=== PATIENT | male | born 1965 | race African-American/Black ===

== ENCOUNTER 2022-09-01 22:45 | Emergency (ER) | payer MEDICARE, MEDICAID ==
[2022-09-01] MEDS ORDERED: Benztropine 1 MG TAB PO SCH (23:45)
[2022-09-01] MEDS ORDERED: Haloperidol 5 MG TAB PO SCH (23:45)
[2022-09-01 23:47] LABS: #Eosinphils 0.1 thou/uL (0.0-0.7); #Lymphocytes 1.8 thou/uL (1.20-3.40); #Monocytes 0.6 thou/uL (0.11-0.59); #Neutrophils 5.2 thou/uL (1.40-6.50); %Basophils 0.3 % (0.0-1.0); %Eosinophils 0.7 % (0.0-10.0); %Monocytes 7.3 % (0.0-10.0); %Neutrophils 67.7 % (42.0-75.0); Hemoglobin 12.9 g/dL (14.0-18.0); Mean Corpuscular HGB CONC 33.5 g/dL (32.0-36.0); Mean Corpuscular Hemoglobin 29.1 pg (27.0-31.0); Mean Corpuscular Volume 86.8 fl (78.0-98.0); Platelet Count 241 10x3/uL (130-400); RBC Distribution Width 13.5 % (11.5-14.5); Red Blood Cell (RBC) Count 4.42 mill/uL (4.70-6.10); White Blood Cell (WBC) Count 7.7 10x3/uL (4.8-10.8)
[2022-09-02 00:09] LABS: ALT (SGPT) 31 U/L (8-55); AST (SGOT) 33 U/L (5-34); Acetaminophen Less than 10.0 mcg/mL (10.0-30.0); Albumin 4.2 g/dL (3.5-5.0); Alkaline Phosphatase 60 U/L (40-110); Anion Gap 17 mmol/L (10-20); BUN (Urea Nitrogen) 13 mg/dL (8.4-25.7); Bilirubin, Total 0.5 mg/dL (0.2-1.2); CK (CPK) 1474 U/L (30-200); Calc. Creatinine Clearance 0 mL/min (70-130); Calcium 10.1 mg/dL (7.8-10.44); Carbon Dioxide 22 mmol/L (22-29); Chloride 102 mmol/L (98-107); Estimated GFR 80; Globulin 3.3 g/dL (2.4-3.5); Glucose 120 mg/dL (70-105); Potassium 3.9 mmol/L (3.5-5.1); Protein, Total 7.5 g/dL (6.0-8.3); Salicylate Less than 8.0 mg/dL (15.0-30.0); Sodium 137 mmol/L (136-145)
[2022-09-02] MEDS ORDERED: OLANZapine 5 MG TAB ONE ×2 (00:17→15:42)
[2022-09-02 03:38] LABS: Alcohol Less than 10 mg/dL (Less than 10)
[2022-09-02] MEDS ORDERED: Ibuprofen 200 MG TAB ONE (08:54)
[2022-09-02 09:34] LABS: Bilirubin Negative (Negative); Blood, Urine Negative (Negative); Clarity Clear (Clear); Glucose, Urine (Dipstick) Normal (Negative); Ketone, Urine 10 mg/dL (Negative); Leukocyte Negative Leu/uL (Negative); Nitrite Negative (Negative); Protein, Urine (Dipstick) 20 mg/dL (Neg-Trace); Specific Gravity, Urine 1.026 (1.002-1.036); Urobilinogen Normal mg/dL (Less than 2); pH, Urine 5.5 (5.0-9.0)
[2022-09-02 09:43] LABS: Amphetamine Not Detected (NotDetected); Barbiturates Screen Not Detected (NotDetected); Benzodiazepine Screen Not Detected (NotDetected); Cocaine Metabolite Screen Not Detected (NotDetected); Methadone Not Detected (NotDetected); Methamphetamine Not Detected (NotDetected); Opiate Screen Not Detected (NotDetected); Oxycodone Screen Not Detected (NotDetected); Phencyclidine (PCP) Not Detected (NotDetected); THC/Cannabinoid Screen Not Detected (NotDetected); Tricyclic Screen Not Detected (NotDetected)
[2022-09-02] MEDS ORDERED: hydrOXYzine Pamoate 25 mg Capsule ONE (10:39)
[2022-09-02] MEDS ORDERED: LORazepam 2 MG/ML SYR.(CARPUJECT) ONE (10:56)
[2022-09-02] MEDS ORDERED: Ziprasidone 20 MG VIAL ONE (13:29)
[2022-09-02] MEDS ORDERED: Sterile Water 10 ML ONE (13:29)
[2022-09-02] MEDS ORDERED: Acetaminophen 325 MG TAB ONE (16:40)
[2022-09-02] MEDS ORDERED: Benztropine 1 MG TAB PO SCH (20:45)
[2022-09-02] MEDS ORDERED: Haloperidol 5 MG TAB PO SCH (20:45)
[2022-09-02] MEDS ORDERED: OLANZapine 10 MG VIAL IM SCH (21:30)
[2022-09-02] MEDS ORDERED: Sterile Water 10 ML VIAL FS SCH (21:30)
[2022-09-03] MEDS ORDERED: Sterile Water 10 ML VIAL FS PRN (15:15)
[2022-09-03] MEDS ORDERED: OLANZapine 10 MG VIAL IM SCH (15:15)
[2022-09-04] MEDS ORDERED: Haloperidol 5 MG TAB PO SCH (09:00)
[2022-09-04] MEDS ORDERED: Benztropine 1 MG TAB PO SCH (09:00)
[2022-09-04] MEDS ORDERED: OLANZapine 5 MG TAB PO SCH (09:00)
== END 2022-09-03 15:10 ==
LOC: ERS 22:45
DX: F23 Brief psychotic disorder (principal)
CPT/HCPCS: 80306; 80307; 81003; 82550; 93005; 96372; 96374; 99285; J2060; 36415; 80053; 84443; 85025; J3486; Q0177

== ENCOUNTER 2022-09-23 10:54 | Emergency (ER) | payer MEDICAID, MEDICARE, OTHER ==
[2022-09-23 11:48] LABS: Hemoglobin 13.3 g/dL (14.0-18.0); Mean Corpuscular HGB CONC 33.1 g/dL (32.0-36.0); Mean Corpuscular Hemoglobin 29.1 pg (27.0-31.0); Mean Corpuscular Volume 87.9 fl (78.0-98.0); Mean Platelet Volume 8.4 fL (7.4-10.4); Platelet Count 229 10x3/uL (130-400); RBC Distribution Width 13.2 % (11.5-14.5); Red Blood Cell (RBC) Count 4.58 mill/uL (4.70-6.10); White Blood Cell (WBC) Count 6.6 10x3/uL (4.8-10.8)
[2022-09-23 12:04] LABS: Bacteria/HPF None Seen HPF (None Seen); Bilirubin Negative (Negative); Blood, Urine Negative (Negative); Clarity Clear (Clear); Glucose, Urine (Dipstick) Normal (Negative); Ketone, Urine Negative (Negative); Leukocyte Negative Leu/uL (Negative); Nitrite Negative (Negative); Protein, Urine (Dipstick) 30 mg/dL (Neg-Trace); RBC/HPF 0-3 HPF (0-3); Specific Gravity, Urine 1.033 (1.002-1.036); Squamous Epithelial 0-3 HPF (0-3); WBC/HPF 0-3 HPF (0-3)
[2022-09-23 12:06] LABS: Eosinophils 1 % (0-10); Lymphocytes 31 % (21-51); MDiff Complete? YES; Monocytes 6 % (0-10); Neutrophil 62 % (42-75); Platelet Morphology Comment Appears Adequate; RBC Morphology Normal
[2022-09-23 12:09] LABS: ALT (SGPT) 41 U/L (8-55); AST (SGOT) 43 U/L (5-34); Albumin 4.3 g/dL (3.5-5.0); Alkaline Phosphatase 68 U/L (40-110); Anion Gap 16 mmol/L (10-20); BUN (Urea Nitrogen) 16 mg/dL (8.4-25.7); Bilirubin, Total 0.3 mg/dL (0.2-1.2); Calc. Creatinine Clearance 0 mL/min (70-130); Calcium 10.4 mg/dL (7.8-10.44); Carbon Dioxide 24 mmol/L (22-29); Chloride 104 mmol/L (98-107); Estimated GFR 100; Globulin 3.5 g/dL (2.4-3.5); Glucose 102 mg/dL (70-105); Lipase 33 U/L (8-78); Potassium 4.2 mmol/L (3.5-5.1); Protein, Total 7.8 g/dL (6.0-8.3); Sodium 140 mmol/L (136-145)
[2022-09-23] MEDS ORDERED: Aspirin Chewable 81 MG TAB ONE (13:17)
[2022-09-23] MEDS ORDERED: Nitroglycerin 2% Ointment 1 INCH/1 GM Packet ONE (13:18)
[2022-09-23 15:14] LABS: Troponin I Less than 0.010 ng/mL (< 0.028)
== END 2022-09-23 15:51 ==
LOC: ERS 10:54
DX: R07.9 Chest pain, unspecified (principal); E11.9 Type 2 diabetes mellitus without complications; E78.5 Hyperlipidemia, unspecified; I10 Essential (primary) hypertension
CPT/HCPCS: 36415; 71045; 80053; 81003; 81015; 83690; 83880; 84484; 85025; 93005

== ENCOUNTER 2025-06-09 16:34 | Emergency (ER) | payer MEDICARE, MEDICAID ==
[2025-06-09 17:24] LABS: #Basophils 0.03 10x3/uL (0.0-0.2); #Eosinophils Less than 0.03 10x3/uL (0.0-0.7); #Monocytes 0.53 10x3/uL (0.11-0.59); #Neutrophils 3.72 10x3/uL (1.40-6.50); %Basophils 0.5 % (0.0-1.0); %Eosinophils 0.2 % (0.0-10.0); %Lymphocytes 22.4 % (21.0-51.0); %Monocytes 9.6 % (0.0-10.0); %Neutrophils 67.1 % (42.0-75.0); Hematocrit 34.6 % (42.0-52.0); Hemoglobin 11.4 g/dL (14.0-18.0); Mean Corpuscular Hemoglobin 28.1 pg (27.0-31.0); Mean Corpuscular Volume 85.2 fL (78.0-98.0); Platelet Count 184 10x3/uL (130-400); Red Blood Cell (RBC) Count 4.06 mill/uL (4.70-6.10); White Blood Cell (WBC) Count 5.54 10x3/uL (4.8-10.8)
[2025-06-09 17:39] LABS: ALT (SGPT) 14 U/L (Less than 45); AST (SGOT) 27 U/L (11-34); Albumin 4.1 g/dL (3.1-4.5); Alkaline Phosphatase 42 U/L (40-110); Anion Gap 14 mmol/L (10-20); BUN (Urea Nitrogen) 12 mg/dL (8.4-25.7); Bilirubin, Total 0.4 mg/dL (0.3-1.2); Calc. Creatinine Clearance 0 mL/min (70-130); Calcium 10.0 mg/dL (7.8-10.44); Carbon Dioxide 25 mmol/L (23-31); Chloride 103 mmol/L (98-107); Globulin 3.5 g/dL (2.4-3.5); Glucose 98 mg/dL (80-115); Potassium 4.5 mmol/L (3.5-5.1); Sodium 137 mmol/L (136-145)
== END 2025-06-09 19:20 | disposition home or self-care (01) ==
LOC: EEVIPCON 16:34 → ERS 16:34
DX: R55 Syncope and collapse (principal); S00.03XA Contusion of scalp, initial encounter; W18.30XA Fall on same level, unspecified, initial encounter; Y92.149 Unspecified place in prison as the place of occurrence of the external cause
CPT/HCPCS: 70450; 80053; 85025; 93005